=== PATIENT | female | born 1975 | race African-American/Black ===

== ENCOUNTER 2017-11-27 14:38 | Inpatient (IN) | payer MEDICAID ==
[~2017-11-27] VITALS: Ht 167.6 cm; Wt 57.7 kg
[2017-11-27] MEDS ORDERED: ONDANSETRON HCL/PF 4 MG/2 ML VIAL IVP ONE (15:00)
[2017-11-27] MEDS ORDERED: MORPHINE SULFATE INJ 2 MG/ML DISP.SYRIN IV ONE ×3 (15:00→20:00)
[2017-11-27] MEDS ORDERED: IV NS 0.9% 1,000 ML BAG IV ONE (15:00)
--- NOTE | 2017-11-27 15:00 | NUR ---
NEW IV STARTED ON LAC, 20 G.
[2017-11-27] MEDS ORDERED: ONDANSETRON HCL/PF 4 MG/2 ML VIAL ONE (15:10)
[2017-11-27] MEDS ORDERED: MORPHINE SULFATE INJ 4 MG/ML DISP.SYRIN ONE ×3 (15:12→19:56)
[2017-11-27 15:17] LABS: EOSINOPHILS # (AUTO) 0.2 /CMM (0.0-0.7); LYMPHOCYTES # (AUTO) 1.9 /CMM (0.8-4.8); RDW COEFFICIENT OF VARIATION 13.1 (11.5-15.0)
[2017-11-27 15:19] LABS: BASOPHILS # (AUTO) 0.3 /CMM (0.0-0.2); BASOPHILS % (AUTO) 3.2 % (0.0-2.0); EOSINOPHILS % (AUTO) 2.7 % (0.0-6.0); HEMATOCRIT 44 % (33-45); LYMPHOCYTES % (AUTO) 22.6 % (20.0-44.0); MEAN CORPUSCULAR HEMOGLOBIN 31 PG (26.0-33.0); MEAN CORPUSCULAR HGB CONC 34 g/dl (31.0-36.0); MEAN CORPUSCULAR VOLUME 90 fL (82-100); MONOCYTES # (AUTO) 0.5 /CMM (0.1-1.30); MONOCYTES % (AUTO) 6.6 % (2.0-12.0); NEUTROPHILS # (AUTO) 5.3 /CMM (1.8-8.9); NEUTROPHILS % (AUTO) 64.9 % (43.0-81.0); PLATELET COUNT (AUTO) 268 /CMM (150-450); RED BLOOD CELL COUNT(AUTO) 4.88 MIL/uL (4.0-5.2); WHITE BLOOD COUNT (AUTO) 8.3 K/uL (4.3-11.0)
[2017-11-27 15:24] LABS: CALCIUM, SERUM 9.2 mg/dL (8.5-10.1); CREATININE 0.8 mg/dL (0.6-1.3); POTASSIUM 4.2 mmol/L (3.5-5.1)
[2017-11-27 15:28] LABS: INR 0.92 (0.85-1.15)
[2017-11-27 15:30] LABS: ALBUMIN 3.6 g/dL (3.4-5.0); BILIRUBIN,DIRECT 0.1 mg/dL (0.0-0.2); BILIRUBIN,TOTAL 0.3 mg/dL (0.2-1.0); TOTAL PROTEIN, SERUM 7.2 g/dL (6.4-8.2)
[2017-11-27 16:06] LABS: APPEARANCE,URINE Clear (CLEAR); BILIRUBIN,URINE Negative (NEGATIVE); BLOOD, URINE Negative Ery/uL (NEGATIVE); COLOR,URINE Yellow (YELLOW); KETONES,URINE Negative (NEGATIVE); LEUKOCYTE ESTERASE ,URINE Negative (NEGATIVE); NITRITE, URINE Negative (NEGATIVE); PROTEIN,URINE Negative (NEGATIVE); UGLUCOSE Negative (NEGATIVE)
--- NOTE | 2017-11-27 16:14 | NUR ---
URINE SENT TO LAB
[2017-11-27 16:20] LABS: BACTERIA,URINE Rare /HPF (None Seen); RBC,URINE 0-2 /HPF (0-2); SQUAMOUS EPITHELIAL CELL,UR Few /HPF (None Seen)
[2017-11-27] MEDS ORDERED: CT SWABBABLE VALVE TRANS SET 1 EA INFUS.SET MC ONE (16:29)
[2017-11-27] MEDS ORDERED: IV NS 0.9% 500 ML IV ONE (16:29)
[2017-11-27] MEDS ORDERED: IOHEXOL-300 100 ML VIAL IV ONE (16:29)
--- NOTE | 2017-11-27 17:55 | NUR ---
Thaddeus BU[facility]- IS AT THE BEDSIDE SPEAKING TO THE PT RE: THE FINDINGS.
[2017-11-27] MEDS ORDERED: PIPERACILLIN /TAZOBACTAM 3.375 G in IV D5W 50 ML IV ONE (18:00)
--- NOTE | 2017-11-27 18:58 | NUR ---
RECEIVED REPORT FROM GEMA ALEJANDRO FOR EBONI.
--- NOTE | 2017-11-27 20:21 | NUR ---
FARIHA GALE TALKING TO DRAMATIC COACH.
--- NOTE | 2017-11-27 20:26 | NUR ---
ER JALOUSIES INSTALLER TALKING TO DR. GUEVARA REGARDING PT.
[2017-11-27] MEDS ORDERED: IV D5/0.45 NACL 500 ML IV ONE (20:30)
--- NOTE | 2017-11-27 21:04 | NUR ---
CALLED [employer] ECHO VASCULAR TECH WAS PAGED.
--- NOTE | 2017-11-27 22:48 | NUR ---
DR. HERRING AT BEDSIDE FOR EVAL.
--- NOTE | 2017-11-27 22:49 | NUR ---
Patient is resting comfortably in bed with eyes closed. Easily aroused. VSS
--- NOTE | 2017-11-27 22:57 | NUR ---
M/S 207-2
--- NOTE | 2017-11-27 23:01 | NUR ---
REPORT GIVEN TO GEMA REVELES FOR EBONI.
--- NOTE | 2017-11-27 23:08 | NUR ---
PT TRANSFERRED VIA GURNEY TO [facility]
[2017-11-27 23:20] VITALS: BP 112/58
--- NOTE | 2017-11-27 23:20 | NUR ---
RN OPEN NOTES RECEIVED PATIENT FROM ER VIA [facility]. A/O X4. NO SIGNS OF DISTRESS OR DISCOMFORT. BREATHING EVEN AND UNLABORED. IV ACCESS IN LAC, PATENT AND INTACT, NO SIGNS OF REDNESS OR INFILTRATION. ORIENTED PATIENT TO UNIT AND ROOM. BED IN LOW LOCKED POSITION WITH SIDE RAILS X2. CALL LIGHT WITHIN REACH. WILL CONTINUE TO MONITOR.
[2017-11-28] MEDS ORDERED: ONDANSETRON HCL/PF 4 MG/2 ML VIAL IVP PRN (00:30)
[2017-11-28] MEDS: MORPHINE SULFATE INJ 4 MG/ML DISP.SYRIN IV PRN ×3 (00:44→09:14)
--- NOTE | 2017-11-28 00:44 | NUR ---
RN NOTES ADMINISTERED MORPHINE 2MG ORDERED FOR LOWE ABD PAIN 07/17. VSS. WILL CONTINUE TO MONITOR.
[2017-11-28] MEDS: IV NS 0.9% 1,000 ML IV PRN ×2 (01:13→16:59)
[2017-11-28] MEDS ORDERED: PIPERACILLIN /TAZOBACTAM 2.25 G VIAL IV ONE (03:09)
[2017-11-28] MEDS ORDERED: PIPERACILLIN /TAZOBACTAM 4.5 G in IV D5W 50 ML IV SCH (05:00)
--- NOTE | 2017-11-28 05:22 | NUR ---
RN NOTES ADMINISTERED MORPHINE 2MG ORDERED FOR LOWE ABD PAIN 06/17. VSS. WILL CONTINUE TO MONITOR.
--- NOTE | 2017-11-28 07:20 | NUR ---
REPORT RECEIVED AT THE BEDSIDE. PATIENT IS RESTING COMFORTABLY IN BED. NO SOB OR DISTRESS NOTED AT THIS TIME. PATIENT REPORTS TOLERABLE PAIN. BED IN A LOW POSITION, CALL LIGHT WITHIN PATIENT REACH. WILL CONTINUE TO MONITOR.
--- NOTE | 2017-11-28 07:37 | NUR ---
RN CLOSING NOTES PATIENT RESTING IN BED, EASILY AROUSABLE. A/O X4. NO SIGNS OF DISTRESS OR DISCOMFORT. BREATHING EVEN AND UNLABORED. IV ACCESS IN LAC WITH NS INFUSING, PATENT AND INTACT, NO SIGNS OF REDNESS OR INFILTRATION. ALL NEEDS MET. NO SIGNIFICANT CHANGES THROUGH THE NIGHT. BED IN LOW LOCKED POSITION WITH SIDE RAILS X2. CALL LIGHT WITHIN REACH. ENDORSED TO AM SHIFT FOR EBOIN.
[2017-11-28 08:00] VITALS: BP 78/40
[2017-11-28] MEDS: PANTOPRAZOLE 40 MG VIAL IV SCH (08:47)
--- NOTE | 2017-11-28 11:42 | NUR ---
PT COMPLAINING OF INCREASED PAIN. DR GUEVARA ON THE FLOOR. STATES IT IS OK TO GIVE MORPHINE 2MG EVERY TWO HOURS. WILL PLACE ORDER.
[2017-11-28] MEDS: PIPERACILLIN /TAZOBACTAM 3.375 G in IV D5W 50 ML IV SCH ×2 (12:11→17:00)
[2017-11-28] MEDS: HYDROMORPHONE INJ 0.5 MG/0.5 ML SYRINGE IV PRN ×3 (12:12→20:51)
[2017-11-28 16:00] VITALS: BP 104/60
--- NOTE | 2017-11-28 19:30 | NUR ---
MS RN NOTE RECEIVED PATIENT AWAKE ALERT AND ORIENTED IN BED. PATIENT STATES THAT SHE HAD TOLERABLE PAIN TO HER ABDOMEN RIGHT NOW. NO RESPIRATORY DISTRESS NOTED. IV SITE INTACT, WITH FLUIDS RUNNING ORDERED. BED LOCKED AND IN LOWEST POSITION. SIDE RAILS UP, CALL LIGHT WITHIN REACH. WILL CONTINUE TO MONITOR.
[2017-11-28 20:00] VITALS: BP 114/57
[2017-11-29] MEDS: PIPERACILLIN /TAZOBACTAM 3.375 G in IV D5W 50 ML IV SCH ×3 (01:46→11:16)
[2017-11-29] MEDS: HYDROMORPHONE INJ 0.5 MG/0.5 ML SYRINGE IV PRN ×2 (01:50→07:28)
--- NOTE | 2017-11-29 06:03 | NUR ---
MS RN NOTE PATIENT SLEEPING AT THIS TIME. ALL NEEDS MET AND ATTENDED TO. WILL ENDORSE TO DAY SHIFT FOR EBONI.
[2017-11-29 06:26] LABS: BASOPHILS % (AUTO) 0.3 % (0.0-2.0); EOSINOPHILS # (AUTO) 0.2 /CMM (0.0-0.7); EOSINOPHILS % (AUTO) 2.2 % (0.0-6.0); HEMATOCRIT 39 % (33-45); LYMPHOCYTES # (AUTO) 1.9 /CMM (0.8-4.8); LYMPHOCYTES % (AUTO) 24.2 % (20.0-44.0); MEAN CORPUSCULAR HEMOGLOBIN 31 PG (26.0-33.0); MEAN CORPUSCULAR HGB CONC 34 g/dl (31.0-36.0); MEAN CORPUSCULAR VOLUME 93 fL (82-100); MONOCYTES # (AUTO) 0.5 /CMM (0.1-1.30); MONOCYTES % (AUTO) 7.1 % (2.0-12.0); NEUTROPHILS # (AUTO) 5.2 /CMM (1.8-8.9); NEUTROPHILS % (AUTO) 66.2 % (43.0-81.0); PLATELET COUNT (AUTO) 212 /CMM (150-450); RDW COEFFICIENT OF VARIATION 13.9 (11.5-15.0); RED BLOOD CELL COUNT(AUTO) 4.19 MIL/uL (4.0-5.2); WHITE BLOOD COUNT (AUTO) 7.8 K/uL (4.3-11.0)
[2017-11-29 06:34] LABS: INR 0.96 (0.87-1.13)
[2017-11-29 06:43] LABS: CALCIUM, SERUM 8.5 mg/dL (8.5-10.1); CREATININE 0.8 mg/dL (0.6-1.3); MAGNESIUM 1.7 mg/dL (1.8-2.4); PHOSPHORUS 4.5 mg/dL (2.5-4.9); POTASSIUM 4.1 mmol/L (3.5-5.1)
[2017-11-29 06:51] LABS: THYROID STIMULATING HORMONE 2.763 uIU/mL (0.358-3.74)
--- NOTE | 2017-11-29 07:20 | NUR ---
REPORT RECEIVED AT THE BEDSIDE. PATIENT RESTING COMFORTABLY IN BED AT THIS TIME. REPORTS PAIN /, WILL FOLLOW UP WITH PAINT MEDICATIONS. NO SOB OR DISTRESS NOTED. PT FOR POSSIBLE CT GUIDED NEEDLE BIOPSY TODAY. WILL KEEP NPO UNTIL AFTER PROCEDURE. BED IN A LOW POSITION, CALL LIGHT WITHIN PATIENT REACH.
[2017-11-29 08:00] VITALS: BP 93/47
[2017-11-29] MEDS: PANTOPRAZOLE 40 MG VIAL IV SCH (08:54)
[2017-11-29] MEDS: IV NS 0.9% 1,000 ML IV PRN (09:27)
[2017-11-29] MEDS ORDERED: HYDR-552 PO (11:49)
[2017-11-29] MEDS ORDERED: FENTANYL PF 250MCG/5ML AMPUL IV ONE (12:00)
[2017-11-29] MEDS ORDERED: NALOXONE PREFILLED SYRINGE 2 MG/2 ML SYRINGE IV ONE (12:00)
[2017-11-29] MEDS ORDERED: MIDAZOLAM HCL 5MG/ML VIAL 25 MG/5 ML VIAL IV ONE (12:00)
[2017-11-29] MEDS ORDERED: MAGNESIUM OXIDE 400 MG TABLET PO ONE (13:00)
--- NOTE | 2017-11-29 18:02 | NUR ---
DISCHARGE INSTRUCTIONS GIVEN TO THE PATIENT AND ABLE TO UNDERSTAND. ALL PAPERWORK SIGNED AND BELONGINGS ACCOUNTED FOR. PRESCRIPTIONS GIVEN TO THE PATIENT. FLU SHOT NOT GIVEN PATIENT ALREADY RECEIVED. IV REMOVED AND PRESSURE APPLIED. NO BLEEDING NOTED AT THE SITE. PATIENT LEFT IN STABLE CONDITION, VIA PRIVATE CAR, WITH FIANCE TO HOME. NO SOB OR DISTRESS NOTED. PATIENT HAS INSTRUCTIONS TO FOLLOW UP POST DISCHARGE.
== END 2017-11-29 17:50 | disposition home or self-care (01) | DRG 694 ==
LOC: ER 14:40 → MEDSG2 22:59
PROVIDERS: ATTEND Internal Medicine
PROC: 0WBF3ZX Excision of Abdominal Wall, Percutaneous Approach, Diagnostic (ICD-10-PCS; principal; 2017-11-29)
DX: C76.8 Malignant neoplasm of other specified ill-defined sites (principal); D75.1 Secondary polycythemia; F17.200 Nicotine dependence, unspecified, uncomplicated; J45.909 Unspecified asthma, uncomplicated; K46.9 Unspecified abdominal hernia without obstruction or gangrene; M54.9 Dorsalgia, unspecified; Z98.890 Other specified postprocedural states; R63.4 Abnormal weight loss; Z68.20 Body mass index [BMI] 20.0-20.9, adult
CPT/HCPCS: 36415; 71046; 76942-TC; 77012-TC; 80048-TC; 80061-TC; 80076-TC; 81000-TC; 83690-TC; 83735-TC; 84100-TC; 84443-TC; 84703-TC; 85025-TC; 85610-TC; 85730-TC; 87040-TC; 87081-TC; 88305-TC; 88312-TC; 88342; A4606; C9113; J2250; J2270; J2310; J2405; J2543; J3010; J3490; J7030; J7060; Z7610

== ENCOUNTER 2018-03-20 11:35 | Emergency (ER) | payer MEDICAID, OTHER ==
[~2018-03-20] VITALS: Ht 165.1 cm; Wt 59.0 kg
[~2018-03-20 11:35] MED LIST: HYDR-552 PO
[2018-03-20] MEDS ORDERED: IBUPROFEN 600 MG TABLET PO ONE (13:30)
[2018-03-20] MEDS ORDERED: MORPHINE SULFATE INJ 4 MG/ML DISP.SYRIN ONE (13:40)
[2018-03-20] MEDS ORDERED: ONDANSETRON HCL/PF 4 MG/2 ML VIAL ONE (13:40)
[2018-03-20 13:56] LABS: BASOPHILS # (AUTO) 0.2 /CMM (0.0-0.2); BASOPHILS % (AUTO) 2.5 % (0.0-2.0); EOSINOPHILS % (AUTO) 1.8 % (0.0-6.0); HEMATOCRIT 43 % (33-45); HEMOGLOBIN 14.3 g/dL (11.5-14.8); LYMPHOCYTES # (AUTO) 1.7 /CMM (0.8-4.8); LYMPHOCYTES % (AUTO) 23.7 % (20.0-44.0); MEAN CORPUSCULAR HGB CONC 33 g/dl (31.0-36.0); MEAN CORPUSCULAR VOLUME 91 fL (82-100); MONOCYTES # (AUTO) 0.5 /CMM (0.1-1.30); MONOCYTES % (AUTO) 6.3 % (2.0-12.0); NEUTROPHILS # (AUTO) 4.8 /CMM (1.8-8.9); NEUTROPHILS % (AUTO) 65.7 % (43.0-81.0); PLATELET COUNT (AUTO) 249 /CMM (150-450); RED BLOOD CELL COUNT(AUTO) 4.74 MIL/uL (4.0-5.2); WHITE BLOOD COUNT (AUTO) 7.3 K/uL (4.3-11.0)
[2018-03-20] MEDS ORDERED: MORPHINE SULFATE INJ 2 MG/ML DISP.SYRIN IV ONE (14:00)
[2018-03-20] MEDS ORDERED: ONDANSETRON HCL/PF 4 MG/2 ML VIAL IVP ONE (14:00)
[2018-03-20] MEDS ORDERED: IV NS 0.9% 1,000 ML BAG IV ONE (14:00)
[2018-03-20 14:05] LABS: CALCIUM, SERUM 9.2 mg/dL (8.5-10.1); CREATININE 0.6 mg/dL (0.6-1.3)
[2018-03-20 14:10] LABS: INR 0.99 (0.85-1.15)
[2018-03-20 14:11] LABS: ALBUMIN 3.2 g/dL (3.4-5.0); BILIRUBIN,DIRECT 0.1 mg/dL (0.0-0.2); BILIRUBIN,TOTAL 0.6 mg/dL (0.2-1.0); TOTAL PROTEIN, SERUM 6.4 g/dL (6.4-8.2)
--- NOTE | 2018-03-20 14:15 | NUR ---
IV ACCESS STARTED. BLOOD DRAWN FOR LABS. MEDICATED ORDERED.
--- NOTE | 2018-03-20 15:00 | NUR ---
PT TAKEN TO CT.
--- NOTE | 2018-03-20 16:00 | NUR ---
PT URINATED BUT THREW HER PAD ON THE BED HUMPHREY WITH THE URINE. UNABLE TO COLLECT FOR SAMPLE. PA MADE AWARE.
[2018-03-20] MEDS ORDERED: IOHEXOL-300 100 ML VIAL IV ONE (16:32)
[2018-03-20] MEDS ORDERED: IOHEXOL-350 100 ML VIAL IV ONE (16:41)
--- NOTE | 2018-03-20 17:00 | NUR ---
PT STILL UNABLE TO GIVE URINE AT THIS TIME.
[2018-03-20 18:06] VITALS: BP 128/78
--- NOTE | 2018-03-20 18:08 | NUR ---
Patient discharged to home in stable condition. Written and verbal after care instructions given. Patient verbalizes understanding of instruction.IV removed. Catheter intact and site benign. Pressure and 4x4 applied to site. No bleeding noted. pt ambulatory with a steady gait
== END 2018-03-20 18:07 | disposition home or self-care (01) ==
LOC: ER 11:39
DX: T81.4XXA Infection following a procedure, initial encounter (principal); J45.909 Unspecified asthma, uncomplicated; F17.200 Nicotine dependence, unspecified, uncomplicated; M54.9 Dorsalgia, unspecified; Z98.890 Other specified postprocedural states
CPT/HCPCS: 36415; 74160; 74176; 80048; 80076; 84703; 85025; 85730; 96374; 96375; 99285; A4606; A6253 ×2; A6402; A6403; J2270; J2405; J7030; Q9967; Z7610